=== PATIENT | male | born 1950 | race Caucasian/White ===

== ENCOUNTER 2017-06-21 05:50 | Inpatient (IN) | payer MEDICARE, BC ==
[~2017-06-21] VITALS: Ht 182.9 cm; Wt 100.0 kg
[2017-06-21] MEDS ORDERED: CHLORHEXIDINE GLUCONATE 4% SOLN 120 ML BTL TOPICAL SCH (06:15)
[2017-06-21] MEDS ORDERED: SODIUM CHLORID 0.9% 500 ML IV PRN (06:15)
[2017-06-21] MEDS ORDERED: CHLORHEXIDINE GLUCONATE 2 % 1 PACK (2 CLOTHS) TOPICAL PRN (06:15)
[2017-06-21] MEDS ORDERED: LACTATED RINGER'S 1000 ML IV PRN (06:15)
[2017-06-21] MEDS ORDERED: METOPROLOL TARTRATE 25 MG TAB PO PRN (06:15)
[2017-06-21] MEDS ORDERED: LEVO150T7 PO (06:24)
[2017-06-21] MEDS ORDERED: CYAN100017 (06:24)
[2017-06-21] MEDS ORDERED: SILV1CRE20 TOPICAL (06:24)
[2017-06-21] MEDS ORDERED: MULTTAB67 PO (06:24)
[2017-06-21] MEDS ORDERED: AMLO5TAB2 PO (06:24)
[2017-06-21] MEDS ORDERED: QUIN5TAB6 PO (06:24)
[2017-06-21] MEDS ORDERED: GABA100C4 PO (06:24)
[2017-06-21] MEDS ORDERED: ASPI-516 CHEW (06:24)
[2017-06-21] MEDS ORDERED: GENTAMICIN SULFATE 80 MG/2 ML VIAL ONE (06:36)
[2017-06-21] MEDS ORDERED: ceFAZolin INJ 1,000 MG VIAL ONE (06:36)
[2017-06-21] MEDS ORDERED: VANCOMYCIN HCL 1000 MG VIAL ONE ×2 (06:36→06:37)
[2017-06-21] MEDS ORDERED: TOBRAMYCIN 1200 MG VIAL (for ortho/sterile core) OTHER ONE (06:37)
[2017-06-21] MEDS ORDERED: SODIUM CHLOR 0.9% 250 ML INJ 250 ML ONE (06:37)
--- NOTE | 2017-06-21 08:43 | PD.OP ---
cc: Kirt Boo MD Operative Report Date of Surgery: Jun 21, 2017 Preoperative Diagnosis: Left tibia osteomyelitis with infected hardware Postoperative Diagnosis: Procedure: Removal of deep hardware left tibia, irrigation debridement of left tibia, placement of antibiotic beads Anesthesia: General Surgeon: Kirt Boo Sweet Potato Disintegrator(s): BA Pagan PA-C The surgical procedure was assisted by my physician pastoral assistant. My P.A. presence was necessary throughout this case for the manipulation and positioning of the surgical extremity. My P.A. was assisting me throughout the duration of this procedure. The skill set of a physician pastoral assistant was medically necessary to complete this procedure. During the surgical case the surgical instrument maker was working at the back table and the physician pastoral assistant was directly assisting me. Operation and Findings: This patient presented to clinic with complaints of drainage from the wound. He had a complex history of multiple surgeries on his left tibia at [facility] in [place]. Patient's history and clinical evaluation were consistent with chronic osteomyelitis and infected hardware. Informed consent was obtained and operative site was marked. He he was brought to the operating room. He was given IV sedation and general anesthesia. Left leg was prepped with alcohol followed Hibiclens and draped in usual sterile fashion. Timeout was was performed. Antibiotics were held until cultures were obtained. Procedure began with removal of deep hardware. 2 incisions were made over the distal screws. 2 additional screws are made of the 2 proximal screws. 1 of the proximal screws was covered in bone. Osteotomes were used to remove excess bone. Each of the screw heads was identified. The screws were not loosened. Next an incision was made through his anterior knee scar. Soft tissues were dissected with Bovie. A medial parapatellar incision was made. Care was taken to avoid penetration into the joint capsule. A guidepin was placed and the tip of the nail. An opening reamer was placed over the guidepin. An extraction bolt was now screwed into the nail. The screws were all removed at this time. The nail was now back slapped and completely removed. Return to irrigation debridement of the tibia. A flexible ball-tipped guidepin was placed down the canal. The tibial canal was then sequentially reamed up to size 13.5. Tissue and bone cultures were obtained from the intramedullary canal for cultures. At this point antibiotics were given. Next a canal brush was used to thoroughly clean the medullary canal. Pulsatile lavage was also used to irrigate the tibia. Nexus return to antibiotic beads. 20 cc of stimulant bone cement was mixed with 2 g of vancomycin and 2 g of tobramycin. The beads were now made into pellets. Once the pellets were hardened, the pellets were inserted into the tibial canal. Fluoroscopy confirmed appropriate placement of antibiotic beads as well as appropriate removal of all hardware. Incisions were thoroughly irrigated. Fascia was closed with #1 Vicryl, subcu tissues closed with 3-0 Vicryl, and skin was closed with aidan. Sterile dressings were applied. Patient was awakened and transferred to recovery room in stable condition. Kirt Boo MD Jun 21, 2017 08:43
[2017-06-21] MEDS ORDERED: DO NOT ADM ANY ANTICOAGULANT DRUGS PRN (09:03)
[2017-06-21] MEDS ORDERED: MIDAZOLAM HCL 2 MG/2 ML VIAL ONE (09:08)
[2017-06-21] MEDS ORDERED: *morphine SULFATE 4 MG/ML PERIprocedure ONLY ONE ×2 (09:08→09:28)
--- NOTE | 2017-06-21 09:52 | RADRPT ---
EXAM DATE/TIME: 06/21/2017 08:25 [place] COMPARISON: No previous studies available for comparison. INDICATIONS : Left tibia wilmer removal and antibiotic spacers placed. MEDICAL HISTORY : None. SURGICAL HISTORY : Left tibia. ENCOUNTER: Initial ACUITY: 1 day PAIN SCORE: Non-responsive. LOCATION: Left tibia FINDINGS: 3 intraprocedural fluoroscopic images demonstrate removal of tibial intramedullary wilmer with placement of apparent antibiotic spacers. There is exuberant periosteal reaction in the mid tibia and fibula. Apparent tibial plateau fracture with placement of jasmina-arthroplasty. CONCLUSION: 1. Tibial intramedullary wilmer removal, as above. Shai Quintero MD on June 21, 2017 at 9:48 Board Certified Radiologist. This report was verified electronically.
[2017-06-21] MEDS: LACTATED RINGER'S 1000 ML INJ 1,000 ML IV SCH ×2 (10:00→19:52)
[2017-06-21] MEDS: GABAPENTIN 100 MG CAP PO SCH ×3 (10:30→18:00)
[2017-06-21] MEDS: LEVOTHYROXINE SODIUM 150 MCG TAB PO SCH (11:00)
[2017-06-21] MEDS ORDERED: LACTATED RINGER'S 1000 ML INJ 1,000 ML IV ONE (12:00)
[2017-06-21] MEDS ORDERED: DEXAMETHASONE SOD PHOS 4 MG/ML VIAL IV ONE (12:00)
[2017-06-21] MEDS ORDERED: PHENYLEPH/NS 1000 MCG/10 ML SYR IV ONE (12:00)
[2017-06-21] MEDS ORDERED: PROPOFOL 200 MG/20 ML AMP IV ONE (12:00)
[2017-06-21] MEDS ORDERED: ePHEDrine/NS 25 MG/5 ML SYRINGE IV ONE (12:00)
[2017-06-21] MEDS ORDERED: ONDANSETRON HCL 4 MG/2 ML VIAL IV ONE (12:00)
[2017-06-21] MEDS ORDERED: LIDOCAINE HCL 1% PF 5 ML SYRINGE OTHER ONE (12:00)
[2017-06-21] MEDS: ACETAMINOPHEN/HYDROcodone 325 MG/10 MG TAB PO PRN ×2 (12:52→19:44)
[2017-06-21] MEDS: PIPERACIL-TAZO 3.375 GM PREMIX 50 ML IV SCH ×2 (13:30→19:45)
[2017-06-21 14:00] VITALS: BP 139/67; PULSE 73; RESP 18; TEMP 97.6; O2SAT 98
[2017-06-21 16:00] VITALS: BP 121/61; PULSE 73; RESP 18; TEMP 98.2; O2SAT 97
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
[2017-06-21 16:15] VITALS: O2SAT 98
--- NOTE | 2017-06-21 16:18 | EKG ---
Date Performed: 06/21/2017 Time Performed: 07:11:31 PTAGE: 66 years EKG: Sinus rhythm NORMAL ECG NO PREVIOUS TRACING DOCTOR: Ward Thompson Interpretating Date/Time 06/21/2017 16:14:06
[2017-06-21] MEDS: LISINOPRIL 20 MG TAB PO SCH (19:43)
[2017-06-21] MEDS: VANCOMYCIN INJ 1,000 MG in SODIUM CHLOR 0.9% 250 ML INJ 250 ML IV SCH (19:48)
[2017-06-21 20:00] VITALS: BP 135/65; PULSE 74; RESP 18; TEMP 97.8; O2SAT 97
[2017-06-22] VITALS (7 sets, daily range): BP systolic 135–153; BP diastolic 65–82; PULSE 63–78; RESP 16–18; TEMP 97.3–98.1; O2SAT 94–98
[2017-06-22] MEDS: LACTATED RINGER'S 1000 ML INJ 1,000 ML IV SCH ×2 (04:56→11:13)
[2017-06-22] MEDS: ACETAMINOPHEN/HYDROcodone 325 MG/10 MG TAB PO PRN ×4 (04:58→21:45)
[2017-06-22] MEDS: PIPERACIL-TAZO 3.375 GM PREMIX 50 ML IV SCH ×3 (04:58→19:56)
[2017-06-22] MEDS: LEVOTHYROXINE SODIUM 150 MCG TAB PO SCH (04:58)
--- NOTE | 2017-06-22 07:24 | PD.ORT.PN ---
Subjective Subjective Remarks POD 1 s/p removal of tibial nail with insertion of Abx spacer doing well. pain controlled. reports unable to sleep Objective Vitals Vital Signs Date Time Temp Pulse Resp B/P (MAP) Pulse Ox O2 Delivery O2 Flow Rate FiO2 06/22/17 04:00 97.7 71 18 139/65 (89) 95 06/22/17 00:00 97.4 71 18 135/68 (90) 96 06/21/17 20:00 97.8 74 18 135/65 (88) 97 06/21/17 16:15 98 Nasal Cannula 3.00 06/21/17 16:00 98.2 73 18 121/61 (81) 97 06/21/17 14:00 97.6 73 18 139/67 (91) 98 06/21/17 13:30 70 16 139/66 (90) 97 Nasal Cannula 2 06/21/17 13:00 78 12 153/88 (109) 99 Nasal Cannula 2 06/21/17 12:00 63 12 140/67 (91) 98 Nasal Cannula 2 06/21/17 11:00 74 14 163/91 (115) 99 Nasal Cannula 2 06/21/17 10:00 97.9 67 14 144/70 (94) 95 Nasal Cannula 2 06/21/17 09:45 70 12 156/74 (101) 96 Nasal Cannula 2 06/21/17 09:30 72 16 143/70 (94) 98 Nasal Cannula 2 06/21/17 09:15 71 15 140/65 (90) 96 Nasal Cannula 2 06/21/17 09:03 97.6 78 14 148/72 (97) 95 Nasal Cannula 2 I/O 06/21/17 06/21/17 06/21/17 06/22/17 06/22/17 06/22/17 07:00 15:00 23:00 07:00 15:00 23:00 Intake Total 1805 ml 360 ml 830 ml Output Total 1225 ml 200 ml 1250 ml Balance 580 ml 160 ml -420 ml Intake Oral 180 ml 360 ml 480 ml IV Total 325 ml 350 ml Other 1300 ml Output Urine Total 1200 ml 200 ml 1250 ml Estimated Blood Loss 25 ml # Voids 2 Objective Remarks LLE: dressings clean and dry. intact. NVI Assessment & Plan Assessment and Plan 1) Left tibia HW infx s/p removal of nail with placement of Abx spacer - POD 1 -WBAT -daily dressing changes POD 2 -awaiting cultures -infectious dz to manage Abx -surgeries complete -plan for Dc home once cultures finalized -f/u with Jorge or PA in 2 weeks Fran Kelly/Supervisor Taping PA Jun 22, 2017 07:24
[2017-06-22] MEDS: amLODIPine BESYLATE 5 MG TAB PO SCH (08:28)
[2017-06-22] MEDS: GABAPENTIN 100 MG CAP PO SCH ×3 (08:28→16:54)
[2017-06-22] MEDS: LISINOPRIL 20 MG TAB PO SCH ×2 (08:28→20:55)
[2017-06-22] MEDS: VANCOMYCIN INJ 1,000 MG in SODIUM CHLOR 0.9% 250 ML INJ 250 ML IV SCH ×2 (08:30→19:56)
[2017-06-22] MEDS: ENOXAPARIN SODIUM 40 MG/0.4 ML SYRINGE SQ SCH (08:30)
[2017-06-22] MEDS: MELATONIN 5 MG TAB PO SCH (20:56)
[2017-06-22] MEDS: HYDROmorphone HCL PF 2 MG/ML VIAL IV PUSH PRN (23:26)
[2017-06-23] VITALS: BP 122/59; PULSE 65; RESP 18; TEMP 97.7; O2SAT 97
[2017-06-23] MEDS: ACETAMINOPHEN/HYDROcodone 325 MG/10 MG TAB PO PRN ×5 (00:45→20:15)
[2017-06-23 04:00] VITALS: BP 130/61; PULSE 66; RESP 18; TEMP 97.8; O2SAT 97
[2017-06-23] MEDS: LEVOTHYROXINE SODIUM 150 MCG TAB PO SCH (05:01)
[2017-06-23] MEDS: PIPERACIL-TAZO 3.375 GM PREMIX 50 ML IV SCH ×3 (05:01→20:14)
[2017-06-23] MEDS: HYDROmorphone HCL PF 2 MG/ML VIAL IV PUSH PRN (05:06)
[2017-06-23] MEDS ORDERED: HYDR-3366 PO (06:52)
--- NOTE | 2017-06-23 07:04 | PD.ORT.PN ---
Subjective Subjective Remarks Patient is awake and alert. Pain Is well-controlled. Cultures from left tibia are positive. Awaiting sensitivities. Objective Vitals Vital Signs Date Time Temp Pulse Resp B/P (MAP) Pulse Ox O2 Delivery O2 Flow Rate FiO2 06/23/17 04:00 97.8 66 18 130/61 (84) 97 06/23/17 00:00 97.7 65 18 122/59 (80) 97 06/22/17 23:56 18 06/22/17 22:45 18 06/22/17 20:00 97.3 63 18 153/70 (97) 94 06/22/17 18:26 97 21 06/22/17 16:00 97.3 77 16 148/69 (95) 97 06/22/17 12:00 98.1 71 16 145/79 (101) 98 06/22/17 08:00 97.7 78 16 151/82 (105) 97 I/O 06/22/17 06/22/17 06/22/17 06/23/17 06/23/17 06/23/17 07:00 15:00 23:00 07:00 15:00 23:00 Intake Total 830 ml 300 ml 840 ml 240 ml Output Total 1250 ml 900 ml Balance -420 ml 300 ml -60 ml 240 ml Intake Oral 480 ml 840 ml 240 ml IV Total 350 ml 300 ml Output Urine Total 1250 ml 900 ml # Bowel Movements 0 Objective Remarks LLE: dressings clean and dry. intact. NVI. Calf soft and nontender. Assessment & Plan Assessment and Plan 1) Left tibia HW infx s/p removal of nail with placement of Abx spacer - POD 2 -WBAT -daily dressing changes starting today -awaiting cultures to be finalized with sensitivities -infectious dz to manage Abx -plan for Dc home once home IV antibiotics are arranged -f/u with Jorge or [facility]ARA in 2 weeks Kirt Patel MD Jun 23, 2017 07:04
[2017-06-23 08:00] VITALS: BP 122/60; PULSE 70; RESP 18; TEMP 97.5; O2SAT 97
[2017-06-23] MEDS: ENOXAPARIN SODIUM 40 MG/0.4 ML SYRINGE SQ SCH (08:54)
[2017-06-23] MEDS: amLODIPine BESYLATE 5 MG TAB PO SCH (08:55)
[2017-06-23] MEDS: VANCOMYCIN INJ 1,000 MG in SODIUM CHLOR 0.9% 250 ML INJ 250 ML IV SCH ×2 (08:55→20:17)
[2017-06-23] MEDS: LACTATED RINGER'S 1000 ML INJ 1,000 ML IV SCH ×2 (08:55→20:22)
[2017-06-23] MEDS: GABAPENTIN 100 MG CAP PO SCH ×3 (08:55→17:51)
[2017-06-23] MEDS: LISINOPRIL 20 MG TAB PO SCH ×2 (08:55→20:14)
[2017-06-23 12:00] VITALS: BP 138/60; PULSE 56; RESP 17; TEMP 97.3; O2SAT 97
[2017-06-23 16:00] VITALS: BP 120/67; PULSE 65; RESP 16; TEMP 97.8; O2SAT 98
[2017-06-23 20:00] VITALS: BP 129/72; PULSE 65; RESP 18; TEMP 97.4; O2SAT 97
[2017-06-23] MEDS: MELATONIN 5 MG TAB PO SCH (20:13)
[2017-06-24] VITALS: BP 125/73; PULSE 62; RESP 18; TEMP 97.9; O2SAT 95
[2017-06-24] MEDS: ACETAMINOPHEN/HYDROcodone 325 MG/10 MG TAB PO PRN ×2 (05:08→12:46)
[2017-06-24] MEDS: LEVOTHYROXINE SODIUM 150 MCG TAB PO SCH (05:08)
[2017-06-24] MEDS: PIPERACIL-TAZO 3.375 GM PREMIX 50 ML IV SCH ×2 (05:08→11:42)
[2017-06-24 06:32] LABS: AUTOMATED NEUTROPHIL # 5.9 TH/MM3 (1.8-7.7); BASOPHIL # 0.1 TH/MM3 (0-0.2); BASOPHIL % 0.8 % (0.0-2.0); EOSINOPHIL # 0.4 TH/MM3 (0-0.4); EOSINOPHIL % 3.9 % (0.0-4.0); HEMATOCRIT 40.6 % (39.0-51.0); HEMOGLOBIN 13.5 GM/DL (13.0-17.0); LYMPH % 25.3 % (9.0-44.0); LYMPHOCYTE # 2.4 TH/MM3 (1.0-4.8); MEAN CELL VOLUME 88.4 FL (80.0-100.0); MEAN CORPUSCULAR HEMOGLOBIN 29.4 PG (27.0-34.0); MEAN CORPUSCULAR HGB CONC 33.3 % (32.0-36.0); MEAN PLATELET VOLUME 7.8 FL (7.0-11.0); MONO % 8.9 % (0.0-8.0); MONOCYTE # 0.9 TH/MM3 (0-0.9); NEUT % 61.1 % (16.0-70.0); PLATELET COUNT 263 TH/MM3 (150-450); RED CELL DISTRIBUTION WIDTH 14.4 % (11.6-17.2); WHITE BLOOD COUNT 9.6 TH/MM3 (4.0-11.0)
[2017-06-24 07:00] LABS: BICARBONATE 29.2 MEQ/L (21.0-32.0); CALCIUM 8.9 MG/DL (8.5-10.1); CREATININE 1.09 MG/DL (0.60-1.30)
[2017-06-24 07:05] VITALS: BP 129/68; PULSE 64; RESP 17; TEMP 97.8; O2SAT 97
[2017-06-24] MEDS: LACTATED RINGER'S 1000 ML INJ 1,000 ML IV SCH ×2 (08:00→16:21)
[2017-06-24] MEDS: VANCOMYCIN INJ 1,000 MG in SODIUM CHLOR 0.9% 250 ML INJ 250 ML IV SCH ×2 (08:00→18:16)
[2017-06-24] MEDS: amLODIPine BESYLATE 5 MG TAB PO SCH (09:07)
[2017-06-24] MEDS: GABAPENTIN 100 MG CAP PO SCH ×3 (09:07→16:21)
[2017-06-24] MEDS: ENOXAPARIN SODIUM 40 MG/0.4 ML SYRINGE SQ SCH (09:07)
[2017-06-24] MEDS: LISINOPRIL 20 MG TAB PO SCH (09:08)
--- NOTE | 2017-06-24 09:16 | PD.ORT.PN ---
Subjective Subjective Remarks POD 3 s/p removal of tibial nail with insertion of Abx spacer doing well. pain controlled. ambulating with walker Objective Vitals Vital Signs Date Time Temp Pulse Resp B/P (MAP) Pulse Ox O2 Delivery O2 Flow Rate FiO2 06/24/17 07:05 97.8 64 17 129/68 (88) 97 06/24/17 00:00 97.9 62 18 125/73 (90) 95 06/23/17 20:00 97.4 65 18 129/72 (91) 97 06/23/17 16:00 97.8 65 16 120/67 (84) 98 06/23/17 12:00 97.3 56 17 138/60 (86) 97 I/O 06/23/17 06/23/17 06/23/17 06/24/17 06/24/17 06/24/17 07:00 15:00 23:00 07:00 15:00 23:00 Intake Total 240 ml 300 ml 1440 ml 240 ml Balance 240 ml 300 ml 1440 ml 240 ml Intake Oral 240 ml 1440 ml 240 ml IV Total 300 ml # Voids 8 2 # Bowel Movements 1 1 0 Result Diagram: 06/24/17 0551 06/24/17 0557 Objective Remarks LLE: dressings clean and dry. intact. NVI. Calf soft and nontender. Assessment & Plan Assessment and Plan 1) Left tibia HW infx s/p removal of nail with placement of Abx spacer - POD 3 -WBAT -daily dressing changes -awaiting cultures to be finalized with sensitivities -infectious dz to manage Abx -plan for Dc home once home IV antibiotics are arranged -f/u with Jorge or [facility]ARA in 2 weeks Fran Kelly/Raftsman NARA Jun 24, 2017 09:16
[2017-06-24 12:00] VITALS: BP 145/63; PULSE 62; RESP 16; TEMP 97.4; O2SAT 96
--- NOTE | 2017-06-24 14:10 | HHI.FF ---
Face to Face Verification Diagnosis: (1) Infected hardware in left leg Physical Therapy Gait training Right LE Weight Bearing: WB as tolerated Left LE Weight Bearing: WB as tolerated Nursing Dressing Changes: Daily dressing change (PICC line dressing changes and management), Wilfred wrap, 4x4s, Xeroform I have seen patient Abelardo Leone on 06/24/17. My clinical findings support the need for the requested home health care services because: Ltd mobility - disease progression I certify that my clinical findings support that this patient is homebound because: Post-op weakness Fran Kelly/First Debby BAINS Jun 24, 2017 14:10
--- NOTE | 2017-06-24 15:06 | HHI.PR ---
Addendum to Inpatient Note Additional Information grew out nl skin good dw Dr Ema rocha PICC fu clx Sarah Noe MD Jun 24, 2017 15:06
--- NOTE | 2017-06-24 15:08 | HHI.FF ---
Infusion Therapy Location of Infusion Therapy: Home [facility] Care IV Infusion Order Patient Information Patient Weight 100 kg Diagnosis: Coded Allergies: iodine (Verified Allergy, Severe, Hives, 06/20/17) HIVES WITH EDEMA, NEEDS TO BE PREMEDICATED. potassium iodide (Verified Allergy, Severe, Hives, 06/20/17) HIVES WITH EDEMA, NEEDS TO BE PREMEDICATED. povidone-iodine (Verified Allergy, Severe, Hives, 06/20/17) HIVES WITH EDEMA, NEEDS TO BE PREMEDICATED. sodium iodide (Verified Allergy, Severe, Hives, 06/20/17) HIVES WITH EDEMA, NEEDS TO BE PREMEDICATED. sodium iodide (Verified Allergy, Severe, Hives, 06/20/17) HIVES WITH EDEMA, NEEDS TO BE PREMEDICATED. Administer Medication Vancomycin 1.5 grams IV q 12 hours Start Treatment: Jun 24, 2017 Stop Treatment: August 05, 2017 Additional Information Venous access: PICC Line Additional Instructions [x] Peripheral flush and dressing changes per protocol [x] Implanted port and central gasoline tester: * Implanted port: 10 ml Normal Saline followed by 5 ml Heparin 100 units/ml Heparin flush after each use and monthly to maintain. [] May leave port accessed during therapy. [] May leave peripheral site accessed for duration of therapy. [x] If patient has SOB or respiratory distress, check oxygen saturation. If less than 90% or clinical signs of respiratory distress, administer oxygen at 2 L/min. via nasal cannula and notify physician. [x] Anaphylaxis/Reaction orders: * Stop infusion. * Keep IV line open with saline flush. * Notify physician. * Monitor vital signs every 15 minutes until symptoms resolve. * Check Oxygen saturation; Oxygen at 2 L/min. via nasal cannula if less than 90% or clinical signs of respiratory distress. * Administer diphenhydramine (Benadryl) 25 mg IV STAT, (unless patient has received as pre-med). May repeat once, if necessary. * Solu-Cortef 250 mg IVP over 30-60 seconds, use 100 mg vials for each dissolution. * Epinephrine (1mg/1 ml) 0.3 mg subcutaneously or IVP now with any signs of respiratory distress. * Check with physician for new additional pre-med orders if patient is re- challenged or re-treated. [x] May remove PICC line when treatment complete, after confirming with Physician. [x] If the patient is admitted to the hospital, the ED, or transferred via [facility] , complete transfer form including medication reconciliation order sheet. Laboratory Tests Weekly Labs: CBC w/diff, Creatinine, SED Rate, Vancomycin Trough Sarah Noe MD Jun 24, 2017 15:08
[2017-06-24] MEDS ORDERED: Vancomycin Consult Pharmacy 1 EA OTHER SCH (15:15)
--- NOTE | 2017-06-24 15:34 | HHI.IDPN ---
Subjective Subjective Remarks sp removal of harware doing well gorowing nl skin good from the op clx Antibiotics rosie rocha Allergies: Coded Allergies: iodine (Verified Allergy, Severe, Hives, 06/20/17) HIVES WITH EDEMA, NEEDS TO BE PREMEDICATED. potassium iodide (Verified Allergy, Severe, Hives, 06/20/17) HIVES WITH EDEMA, NEEDS TO BE PREMEDICATED. povidone-iodine (Verified Allergy, Severe, Hives, 06/20/17) HIVES WITH EDEMA, NEEDS TO BE PREMEDICATED. sodium iodide (Verified Allergy, Severe, Hives, 06/20/17) HIVES WITH EDEMA, NEEDS TO BE PREMEDICATED. sodium iodide (Verified Allergy, Severe, Hives, 06/20/17) HIVES WITH EDEMA, NEEDS TO BE PREMEDICATED. Objective . Vital Signs Date Time Temp Pulse Resp B/P (MAP) Pulse Ox O2 Delivery O2 Flow Rate FiO2 06/24/17 12:00 97.4 62 16 145/63 (90) 96 06/24/17 07:05 97.8 64 17 129/68 (88) 97 06/24/17 00:00 97.9 62 18 125/73 (90) 95 06/23/17 20:00 97.4 65 18 129/72 (91) 97 06/23/17 16:00 97.8 65 16 120/67 (84) 98 . Laboratory Tests Test 06/24/17 05:51 White Blood Count 9.6 TH/MM3 Red Blood Count 4.60 MIL/MM3 Hemoglobin 13.5 GM/DL Hematocrit 40.6 % Mean Corpuscular Volume 88.4 FL Mean Corpuscular Hemoglobin 29.4 PG Mean Corpuscular Hemoglobin Concent 33.3 % Red Cell Distribution Width 14.4 % Platelet Count 263 TH/MM3 Mean Platelet Volume 7.8 FL Neutrophils (%) (Auto) 61.1 % Lymphocytes (%) (Auto) 25.3 % Monocytes (%) (Auto) 8.9 % Eosinophils (%) (Auto) 3.9 % Basophils (%) (Auto) 0.8 % Neutrophils # (Auto) 5.9 TH/MM3 Lymphocytes # (Auto) 2.4 TH/MM3 Monocytes # (Auto) 0.9 TH/MM3 Eosinophils # (Auto) 0.4 TH/MM3 Basophils # (Auto) 0.1 TH/MM3 CBC Comment DIFF FINAL Differential Comment Laboratory Tests Test 06/24/17 05:57 Blood Urea Nitrogen 19 MG/DL Creatinine 1.09 MG/DL Random Glucose 106 MG/DL Calcium Level 8.9 MG/DL Sodium Level 139 MEQ/L Potassium Level 4.2 MEQ/L Chloride Level 102 MEQ/L Carbon Dioxide Level 29.2 MEQ/L Anion Gap 8 MEQ/L Estimat Glomerular Filtration Rate 67 ML/MIN Imaging Last Impressions Tibia/Fibula X-Ray 06/21/17 0000 Signed Impressions: Service Date/Time: Wednesday, June 21, 2017 08:25 - CONCLUSION: 1. Tibial intramedullary wilmer removal, as above. Shai Quintero MD Physical Exam CONSTITUTIONAL/GENERAL: This is an adequately nourished patient, in no apparent distress. TUBES/LINES/DRAINS: SKIN: No jaundice, rashes, or lesions. Ecchymoses on upper extremities. No wounds seen anteriorly. Skin temperature appropriate. Not diaphoretic. MUSCULOSKELETAL: Extremities without clubbing, cyanosis, or edema. LLE with post op dressing inplace no ascending lymphangiotis/ cellulitis noted Assessment & Plan Remarks Left tibia osteomyelitis with infected hardware sp Removal of deep hardware left tibia, irrigation debridement of left tibia, placement of antibiotic beads by Dr Boo cont vancpo x 6 weeks OPAT forms filled out PICC monitopr labs dw Dr Boo fu AFB clx untill final Sarah Noe MD Jun 24, 2017 15:34
[2017-06-24 16:00] VITALS: BP 134/68; PULSE 73; RESP 17; TEMP 97.4; O2SAT 93
[2017-06-24] MEDS ORDERED: SODIUM CHLORIDE 0.9% FLUSH 10 ML FLUSH IV FLUSH PRN (19:00)
[2017-06-25] MEDS ORDERED: SODIUM CHLORIDE 0.9% FLUSH 10 ML FLUSH IV FLUSH SCH (09:00)
== END 2017-06-24 20:04 | disposition home or self-care (01) | DRG 493 ==
LOC: HSDI 05:50 → N07B 13:44
PROVIDERS: ADMIT Orthopaedic Surgery Orthopaedic Trauma; ATTEND Orthopaedic Surgery Orthopaedic Trauma
PROC: 0QBH0ZZ Excision of Left Tibia, Open Approach (ICD-10-PCS; 2017-06-21)
PROC: 3E0V329 Introduction of Other Anti-infective into Bones, Percutaneous Approach (ICD-10-PCS; 2017-06-21)
PROC: 0QPH04Z Removal of Internal Fixation Device from Left Tibia, Open Approach (ICD-10-PCS; principal; 2017-06-21 07:20)
PROC: 05HY33Z Insertion of Infusion Device into Upper Vein, Percutaneous Approach (ICD-10-PCS; 2017-06-24)
PROC: B54MZZA Ultrasonography of Right Upper Extremity Veins, Guidance (ICD-10-PCS; 2017-06-24)
DX: T84.623A Infection and inflammatory reaction due to internal fixation device of left tibia, initial encounter (principal); M86.8X6 Other osteomyelitis, lower leg; I10 Essential (primary) hypertension; M70.61 Trochanteric bursitis, right hip; M10.9 Gout, unspecified; K21.9 Gastro-esophageal reflux disease without esophagitis; Z96.653 Presence of artificial knee joint, bilateral; I25.10 Atherosclerotic heart disease of native coronary artery without angina pectoris; Z95.5 Presence of coronary angioplasty implant and graft; E03.9 Hypothyroidism, unspecified; Z87.891 Personal history of nicotine dependence
CPT/HCPCS: 36569; 76000; 76937; 80048; 80202; 85025; 86403; 87015; 87070; 87102; 87116; 87176; 87205; 87206; 93005; 94150; J0690; J1100; J1170; J1580; J1650; J2250; J2270; J2370; J2405; J2543; J3010; J3370; J7050; J7120; L1830